=== PATIENT | male | born 1995 | race American Indian/Alaskan Native ===

== ENCOUNTER 2019-04-18 13:43 | Emergency (ER) | payer SELFPAY ==
[2019-04-18 15:08] VITALS: BP 141/88
--- NOTE | 2019-04-18 15:29 | XRay Report ---
CHEST 2 VIEWS INDICATION / CLINICAL INFORMATION: c/p and persistant productive cough. COMPARISON: None available. FINDINGS: SUPPORT DEVICES: None. HEART / MEDIASTINUM: No significant abnormality. LUNGS / PLEURA: No significant pulmonary or pleural abnormality. No pneumothorax. ADDITIONAL FINDINGS: No significant additional findings. IMPRESSION: 1. No acute findings. Signer Name: Eugene Rios MD Signed: 04/18/2019 3:25 PM Workstation Name: [id number]
== END 2019-04-18 20:47 | disposition left against medical advice (07) ==
LOC: ED 13:43
DX: R07.89 Other chest pain (principal); Z53.21 Procedure and treatment not carried out due to patient leaving prior to being seen by health care provider
CPT/HCPCS: 71046; 93005; 93010